=== PATIENT | female | born 1950 | race Caucasian/White ===

== ENCOUNTER 2017-06-20 15:46 | Emergency (ER) | payer OTHER | END 2017-06-20 18:06 | disposition home or self-care (01) | LOC: E/R 15:46 | DX: J20.9 Acute bronchitis, unspecified (principal) | CPT/HCPCS: 99284 ==

== ENCOUNTER 2017-06-29 14:38 | Emergency (ER) | payer OTHER | END 2017-06-29 17:15 | disposition home or self-care (01) | LOC: FTE 14:38 | DX: H01.002 Unspecified blepharitis right lower eyelid (principal); H01.001 Unspecified blepharitis right upper eyelid; H01.005 Unspecified blepharitis left lower eyelid; H01.004 Unspecified blepharitis left upper eyelid | CPT/HCPCS: 99284 ==

== ENCOUNTER 2017-07-11 16:01 | Emergency (ER) | payer OTHER | END 2017-07-11 16:54 | disposition home or self-care (01) | LOC: E/R 16:54 → FTE 16:01 | DX: H10.9 Unspecified conjunctivitis (principal) | CPT/HCPCS: 99283; Z7502 ==

== ENCOUNTER 2018-02-09 19:20 | Emergency (ER) | payer SELFPAY, OTHER | END 2018-02-09 22:46 | disposition left against medical advice (07) | LOC: FTE 22:46 | DX: Z53.21 Procedure and treatment not carried out due to patient leaving prior to being seen by health care provider (principal) ==

== ENCOUNTER 2018-02-10 17:02 | Emergency (ER) | payer OTHER ==
[2018-02-10] MEDS: TETRACAINE 0.5% 4 ML OPH LEFT EYE (19:44)
[2018-02-10] MEDS: FLUORESCEIN STRIP LEFT EYE (19:44)
== END 2018-02-10 19:50 | disposition home or self-care (01) ==
LOC: FTE 17:02
DX: S05.92XA Unspecified injury of left eye and orbit, initial encounter (principal); I10 Essential (primary) hypertension; X58.XXXA Exposure to other specified factors, initial encounter; Y92.9 Unspecified place or not applicable
CPT/HCPCS: 99283; Z7610

== ENCOUNTER 2018-04-07 15:20 | Emergency (ER) | payer MEDICARE, OTHER | END 2018-04-07 17:46 | disposition home or self-care (01) | LOC: FTE 15:20 | DX: R05 Cough (principal); I10 Essential (primary) hypertension; A49.9 Bacterial infection, unspecified | CPT/HCPCS: 99283 ==